=== PATIENT | female | born 1955 | race Two or more races ===

== ENCOUNTER → 2018-06-05 | Outpatient (CLI) | payer OTHER ==
--- NOTE | 2018-06-05 13:21 | DIREP ---
PROCEDURE:MRI JOINT LOWER EXTREMITY-LT W/O COMPARISON:None. INDICATIONS:M25.569 KNEE PAIN TECHNIQUE:A complete multi-planar MRI was performed. FINDINGS: PATELLOFEMORAL:Mild cartilage thinning and surface irregularity at the lateral patellar facet with subjacent reactive marrow edema. Mild medial trochlear facet cartilage surface irregularity. Small patellar and trochlear marginal osteophytes. MEDIAL COMPARTMENT MEDIAL MENISCUS:Tear of the anterior horn and adjacent body segments of the medial meniscus. Degenerative signal in the posterior root segment. HYALINE CARTILAGE:Full-thickness cartilage loss involves a large portion of the central aspect of the medial compartment articular surfaces. BONES:Small marginal osteophytes. Reactive subcortical marrow edema. MCL AND MEDIAL CAPSULE:Normal medial collateral ligament and medial capsule. LATERAL COMPARTMENT LATERAL MENISCUS:Normal. No visible tear or significant degeneration. HYALINE CARTILAGE:Normal. No visible defect. BONES:Normal. No marrow pathology, fracture, or significant arthropathy. LCL/POSTEROLAT. COMPLEX:Normal lateral collateral ligament, fascicles, lateral capsule and ligaments. ACL:Normal appearing ligament. Small geodes at the tibial attachment. PCL:Normal appearing ligament. MENISCOFEMORAL:Normal meniscofemoral ligaments. EFFUSION:Small volume joint effusion. OTHER:Negative. CONCLUSION: 1. Medial meniscal tear. 2. Severe degenerative arthropathy. Dictated by: Meek Youssef M.D. on 06/05/2018 at 01:16 PM
== END | disposition home or self-care (01) ==
LOC: MRI 10:53
PROVIDERS: ATTEND Family Medicine
DX: S83.242A Other tear of medial meniscus, current injury, left knee, initial encounter (principal); M12.862 Other specific arthropathies, not elsewhere classified, left knee; M25.462 Effusion, left knee; X58.XXXA Exposure to other specified factors, initial encounter; Y93.89 Activity, other specified; Y92.89 Other specified places as the place of occurrence of the external cause; Y99.8 Other external cause status
CPT/HCPCS: 73721

== ENCOUNTER → 2021-03-17 | Outpatient (CLI) | payer OTHER ==
--- NOTE | 2021-03-17 17:28 | DIREP ---
PROCEDURE:CT ABDOMEN W/ + W/O CONTRAST COMPARISON:None. INDICATIONS:ABD PAIN LUQ TECHNIQUE:Axial images were created through the abdomen with and without non-ionic intravenous contrast material. No oral contrast was administered. Sagittal and coronal reconstructions were performed from source images. FINDINGS: LUNG BASES:Right middle lobe soft tissue nodule measures 2.1 x 1.1 x 1.4 cm. Nodule in the medial right lower lobe image 16 measures 9 x 11 mm. LIVER:There are a couple simple cysts in the liver. BILIARY:Multiple gallstones. No gallbladder wall thickening or pericholecystic fluid. No biliary ductal dilatation. PANCREAS:Normal. No lesion, fluid collection, ductal dilatation, or atrophy. SPLEEN:Normal. No enlargement or focal lesion. ADRENALS:Normal. No mass or enlargement. URINARY TRACT:Normal. No focal lesions or hydronephrosis. AORTA/VASCULAR:Scattered calcified plaque. RETROPERITONEUM:Normal. No mass or adenopathy. BOWEL/MESENTERY:There is haziness in the central mesentery and mildly prominent lymph nodes consistent with missing mesenteric. This may be infectious or inflammatory. Normal appendix. No bowel obstruction. ABDOMINAL WALL:Normal. No mass or hernia. PELVIC ORGANS:The pelvis was not imaged. BONES:There are degenerative changes of the spine. OTHER:Negative. CONCLUSION: 1. Cholelithiasis. 2. Haziness and mildly prominent central mesenteric lymph nodes suggesting infectious or inflammatory etiologies versus lymphoma, (lymphoma felt less likely). Dictated by: Meek Youssef M.D. on 03/17/2021 at 05:14 PM
== END | disposition home or self-care (01) ==
LOC: RAD 10:08
PROVIDERS: ATTEND Family Medicine
DX: K80.20 Calculus of gallbladder without cholecystitis without obstruction (principal); K76.89 Other specified diseases of liver; M47.819 Spondylosis without myelopathy or radiculopathy, site unspecified
CPT/HCPCS: 36415; 74170; 82565; Q9965

== ENCOUNTER → 2021-04-27 | Outpatient (CLI) | payer OTHER ==
[~2021-04-27] MED LIST: LEXISCAN IV ONE
--- NOTE | 2021-04-28 01:31 | STRESS ---
DATE OF SERVICE: 04/27/2021 DICTATOR NAME: MARIA C VITALJOSE CARLOSSoco CARDIAC STRESS TEST INDICATION: Chest pain. FINDINGS: Baseline EKG shows normal sinus rhythm, normal variant with nonspecific ST-T wave changes. Stress EKG shows normal sinus rhythm, unchanged from baseline. At the end of recovery, EKG shows normal sinus rhythm, unchanged from baseline. Baseline blood pressure is 141/84 and remained the same during stress. At the end of recovery, the blood pressure was 136/79. Baseline heart rate was 65 beats per minute and flex to 85 beats per minute during stress. At the end of recovery, the heart rate was 90 beats per minute. Blood pressure and heart rate were appropriate for stress. There were no significant symptoms noted during stress. There were no arrhythmias noted during stress. EKG portion of stress test is negative for myocardial ischemia. Nuclear images were obtained with a rest dose of 11.2 mCi technetium-99 sestamibi, and a stress dose of 30 mCi technetium 99 sestamibi. Nuclear images reveal homogeneous tracer distribution across all wall segments in both rest and stress images, with no evidence of myocardial ischemia or infarction. Left ventricular ejection fraction is 63%. EDV is 52 mL, ESV is 19 mL. The left ventricle is normal in size. Gated motion images showed normal wall motion across all segments of the left ventricle. TID is 1.1. There is no evidence of diaphragmatic attenuation artifact. IMPRESSION: 1. Normal myocardial perfusion imaging with no evidence of myocardial ischemia or infarction. 2. Left ventricular ejection fraction of 63%. 3. This is a negative study. Hilda GRIDER D.O. DR: BALAJI/ALY TID: [id number] RECEIPT: [id number]
== END | disposition home or self-care (01) ==
LOC: RAD 10:32
PROVIDERS: ATTEND Internal Medicine Interventional Cardiology
DX: R00.2 Palpitations (principal)
CPT/HCPCS: 78452; 93017; A9500; J2785

== ENCOUNTER → 2022-03-21 | Outpatient (CLI) | payer OTHER ==
--- NOTE | 2022-03-21 13:04 | DIREP ---
PROCEDURE:CT ABDOMEN W/ + W/O CONTRAST COMPARISON:[facility], CT, CT ABDOMEN W-W/O, 03/17/2021, 10:54 AM. INDICATIONS:R10.12 ABD PAIN, LUQ TECHNIQUE:Axial images were created through the abdomen with and without non-ionic intravenous contrast material. Noncontrast, portal venous, and 5 minute delayed phase images were acquired. No oral contrast was administered. Sagittal and coronal reconstructions were performed from source images. FINDINGS: LUNG BASES:Stable right middle lobe and right lower lobe nodules measuring up to 2.0 cm in the right middle lobe (series [id number], image 59). Questionable faint calcifications involving the right middle lobe nodule. No consolidation or pleural effusion. Normal heart size. LIVER:Stable fluid density lesions in the left hepatic lobe in keeping with cysts. No new abnormality. BILIARY:Interval cholecystectomy. No fluid collection in the gallbladder fossa. There is no biliary ductal dilatation. PANCREAS:Mild peripancreatic/mesenteric stranding. Correlate with lipase. No focal lesion or ductal dilatation. No peripancreatic fluid collection. SPLEEN:Normal. No enlargement or focal lesion. ADRENALS:Normal. No mass or enlargement. URINARY TRACT:Normal. No focal lesions or hydronephrosis. No visible urinary tract calculi. AORTA/VASCULAR:Mild scattered calcified atherosclerosis without abdominal aortic aneurysm. RETROPERITONEUM:Normal. No mass or adenopathy. BOWEL/MESENTERY:The appendix is visualized and appears normal. There is no evidence of intestinal obstruction or free air in the visualized abdomen and pelvis. Trace free fluid in the pelvis may be physiologic. Stranding along the root of the mesentery with several prominent mesenteric lymph nodes. ABDOMINAL WALL:Postsurgical changes in the ventral abdominal wall. PELVIC ORGANS:The pelvis was not imaged. BONES:Degenerative changes in the spine with multilevel anterior bridging osteophytes. No acute or aggressive osseous abnormality. OTHER:Negative. CONCLUSION: 1. Interval cholecystectomy. No fluid collection or abnormality is seen in the gallbladder fossa. 2. Stranding at the root of the mesentery with several prominent mesenteric lymph nodes, grossly unchanged. This may represent sclerosing mesenteritis, though is also seen with other conditions including recent surgery, systemic inflammatory conditions, or autoimmune conditions. Lymphoma considered less likely given interval stability. Clinically correlate. 3. Stable pulmonary nodules in the right middle lobe and right lower lobe. Consider follow-up CT in 3 months, PET-CT, or percutaneous biopsy per Fleischner criteria. 4. Other findings as above. Dictated by: Balaji Max M.D. On 03/21/2022 at 12:51 PM
== END | disposition home or self-care (01) ==
LOC: RAD 10:31
PROVIDERS: ATTEND Family Medicine
DX: R10.12 Left upper quadrant pain (principal); R91.8 Other nonspecific abnormal finding of lung field; M25.78 Osteophyte, vertebrae; Z90.49 Acquired absence of other specified parts of digestive tract
CPT/HCPCS: 74170; 36415; 82565; Q9965

== ENCOUNTER → 2022-07-04 | Outpatient (CLI) | payer OTHER ==
--- NOTE | 2022-07-04 13:06 | DIREP ---
This report includes an Addendum and supersedes previous reports for this exam. PROCEDURE:CT CHEST W/O COMPARISON:[facility], CT, CT ABDOMEN W-W/O, 03/17/2021, 10:54 AM. INDICATIONS:R91.1 PULMONARY NODULE TECHNIQUE:Helical sections through the chest were performed from the lung apices through the diaphragms without IV contrast. Sagittal and coronal reconstructions are obtained from source images. FINDINGS: LUNGS:11 mm nodule within the right lung base, enlarged from prior exam. Recommend biopsy. Additional right middle lobe nodule measuring approximate 12 mm in size., stable for over 2 years. Left upper lobe nodule on series 5, image 32 measuring 3 mm. PLEURA:Normal. No mass or effusion. CARDIAC:Normal. No enlargement, pericardial thickening, or significant calcification. MEDIASTINUM:Normal. No mass or adenopathy. CONCHITA:Normal. No mass or adenopathy. AORTA:Normal. No aneurysm. CHEST WALL:Normal. No mass or axillary adenopathy. LIMITED ABDOMEN:Hepatic cysts, stable for over 2 years. Limited images of the upper abdomen are unremarkable. BONES:Normal. No bony lesion or fracture. OTHER:Negative. CONCLUSION: 1. Suspicious nodule in the left lung base. Slowly enlarging over time. Recommend biopsy 2. Incidentally noted 3 mm nodule in the left upper lobe. 3. Right middle lobe nodule with stability for over 2 years, compatible with benign process. Dictated by: Armando Estevez DO on 07/04/2022 at 12:56 PM NDUM: There is a [id number] discrepancy involving conclusion 1. New conclusion below. CONCLUSION: 1. Suspicious nodule in the RIGHT lung base. Slowly enlarging over time. Recommend biopsy 2. Incidentally noted 3 mm nodule in the left upper lobe. 3. Right middle lobe nodule with stability for over 2 years, compatible with benign process. Dictated by: Armando Estevez DO on 07/07/2022 at 01:49 PM
== END | disposition home or self-care (01) ==
LOC: RAD 09:51
PROVIDERS: ATTEND Family Medicine
DX: R91.1 Solitary pulmonary nodule (principal)
CPT/HCPCS: 36415; 71250; 82565

== ENCOUNTER → 2023-05-02 | Outpatient (CLI) | payer OTHER | END | disposition home or self-care (01) | LOC: RAD 09:59 | PROVIDERS: ATTEND Internal Medicine | DX: R91.8 Other nonspecific abnormal finding of lung field (principal); I25.10 Atherosclerotic heart disease of native coronary artery without angina pectoris; I70.0 Atherosclerosis of aorta; K76.89 Other specified diseases of liver; M47.814 Spondylosis without myelopathy or radiculopathy, thoracic region; Z90.49 Acquired absence of other specified parts of digestive tract | CPT/HCPCS: 71250 ==

== ENCOUNTER → 2023-05-08 | Outpatient (CLI) | payer OTHER | END | disposition home or self-care (01) | LOC: RAD 09:33 | PROVIDERS: ATTEND Specialist | DX: I48.0 Paroxysmal atrial fibrillation (principal); I10 Essential (primary) hypertension; G47.33 Obstructive sleep apnea (adult) (pediatric); R06.02 Shortness of breath; E66.01 Morbid (severe) obesity due to excess calories | CPT/HCPCS: 78452; 93306; A9500 ==

== ENCOUNTER 2023-05-24 07:33 | Day surgery (SDC) | payer OTHER ==
[2023-05-22 14:19] VITALS: BP 132/63; PULSE 67; RESP 18; TEMP 97.9; O2SAT 98
[2023-05-22 14:50] LABS: PROTHROMBIN PROTIME 10.7 SEC (9.7-11.6)
[~2023-05-24] VITALS: Ht 172.7 cm; Wt 133.8 kg
[2023-05-24] VITALS (12 sets, daily range): BP systolic 113–146; BP diastolic 57–74; PULSE 57–68; RESP 16–18; TEMP 97.5–98.5; O2SAT 96–98
[~2023-05-24 07:33] MED LIST changes: +ASPI-667 PO; +FLUO40CA9 PO; +HEPARIN ONE; +IRBE150T17 PO; -LEXISCAN IV ONE; +METO-238 PO; +MULT-129 PO; +NS 1000ML 1,000 ML ONE; +PHENERGAN ONE; +SUBLIMAZE 100MCG/2ML ONE; +VALIUM ONE; +VERSED ONE
[2023-05-24] MEDS: NS 1000ML 1,000 ML IV SCH (07:55)
[2023-05-24] MEDS: PHENERGAN PO ONE (07:59)
[2023-05-24] MEDS: VALIUM PO ONE (07:59)
== END 2023-05-24 12:40 | disposition home or self-care (01) ==
LOC: SDC 07:33
PROVIDERS: ATTEND Specialist
DX: R94.39 Abnormal result of other cardiovascular function study (principal); I48.0 Paroxysmal atrial fibrillation; I10 Essential (primary) hypertension; E66.01 Morbid (severe) obesity due to excess calories; F32.A Depression, unspecified; I87.2 Venous insufficiency (chronic) (peripheral); E55.9 Vitamin D deficiency, unspecified; E11.9 Type 2 diabetes mellitus without complications; E78.00 Pure hypercholesterolemia, unspecified; G47.33 Obstructive sleep apnea (adult) (pediatric); Z79.899 Other long term (current) drug therapy; Z98.890 Other specified postprocedural states; Z90.49 Acquired absence of other specified parts of digestive tract; Z98.891 History of uterine scar from previous surgery; Z82.49 Family history of ischemic heart disease and other diseases of the circulatory system; Z72.89 Other problems related to lifestyle; Z68.41 Body mass index [BMI] 40.0-44.9, adult; Z79.82 Long term (current) use of aspirin; Z88.8 Allergy status to other drugs, medicaments and biological substances; Z88.2 Allergy status to sulfonamides
CPT/HCPCS: 71046; 36415; 85610; 85730; 93458; 99152; J7030 ×2; J1644 ×2; C1894 ×4; A6258; J2250; J3010; C1760; Q9967

== ENCOUNTER → 2023-10-22 | Outpatient (CLI) | payer OTHER ==
[~2023-10-22] MED LIST changes: -HEPARIN ONE; -NS 1000ML 1,000 ML ONE; -PHENERGAN ONE; -SUBLIMAZE 100MCG/2ML ONE; -VALIUM ONE; -VERSED ONE
[2023-10-22 15:38] LABS: BASOPHIL % 0.2 % (0.0-0.2); EOSINOPHIL # 0.1 10^3/uL (0.0-0.2); EOSINOPHIL % 1.6 % (0.0-5.0); HEMATOCRIT(ML) 46.7 % (36.0-46.0); HEMOGLOBIN 14.9 g/dL (12.0-15.0); LYMPHOCYTES # 1.27 10^3/uL1 (1.0-4.8); LYMPHOCYTES % 14.1 % (24.0-44.0); MEAN CORP HGB 30.3 pg (26-34); MEAN CORP HGB CONCENTRATION 31.9 g/dL (33-36.5); MEAN CORP VOLUME 95.1 fL (78-100); MONOCYTES # 0.7 10^3/uL (0.3-0.8); MONOCYTES % 7.4 % (5.0-12.0); NEUTROPHIL # 6.9 10^3/uL (1.8-7.7); NEUTROPHILS % 76.4 % (41.0-85.0); PLATELET COUNT 215 10^3/uL (150-400); RED BLOOD CELL 4.91 10^6/uL (4.00-5.20); RED CELL DISTRIBUTION WIDTH 13.1 % (11.5-14.5)
[2023-10-22 15:49] LABS: +ADD MANUAL DIFF(NO CHRG) NO
[2023-10-22 15:58] LABS: ANION GAP 12.6; C-REACTIVE PROTEIN 0.27 mg/dL (0.00-5.00); CARBON DIOXIDE 26.4 mmol/L (20.0-32); CREATININE SERUM 1.21 mg/dL (0.59-1.40)
[2023-10-22 15:59] LABS: ALBUMIN(ML) 3.5 g/dL (3.4-5.0); ALBUMIN/GLOBULIN RATIO 1.093; BUN/CREATININE RATIO 15.7 (10.0-20.0); CALCIUM 9.2 mg/dL (8.4-10.5); EST GFR, NON-AA 44.5 (>/=60); LDL/HDL RATIO 0.8
== END | disposition home or self-care (01) ==
LOC: LAB 15:18
PROVIDERS: ATTEND Specialist
DX: I10 Essential (primary) hypertension (principal); E11.9 Type 2 diabetes mellitus without complications; E78.5 Hyperlipidemia, unspecified
CPT/HCPCS: 36415; 80053; 80061; 84439; 84443; 85025; 86140

== ENCOUNTER → 2024-06-30 | Outpatient (CLI) | payer OTHER ==
[~2024-06-30] MED LIST changes: +XOPENEX ONE
== END | disposition home or self-care (01) ==
LOC: RT 09:26
PROVIDERS: ATTEND Internal Medicine
DX: J44.9 Chronic obstructive pulmonary disease, unspecified (principal)
CPT/HCPCS: 94060; J3490

== ENCOUNTER → 2024-09-25 | Outpatient (CLI) | payer OTHER ==
[~2024-09-25] MED LIST changes: -XOPENEX ONE
[2024-09-25 12:45] LABS: BASOPHIL % 0.5 % (0.1-1.2); EOSINOPHIL # 0.2 10^3/uL (0.0-0.2); EOSINOPHIL % 2.5 % (0.0-5.0); HEMOGLOBIN 15.7 g/dL (12.0-15.0); LYMPHOCYTES # 0.52 10^3/uL1 (1.0-4.8); MEAN CORP HGB 29.8 pg (26-34); MONOCYTES # 0.6 10^3/uL (0.3-0.8); MONOCYTES % 7.3 % (5.0-12.0); NEUTROPHIL # 7.2 10^3/uL (1.8-7.7); PLATELET COUNT 247 10^3/uL (150-400); RED BLOOD CELL 5.27 10^6/uL (4.00-5.20); WHITE BLOOD CELL 8.7 10^3/uL (4.5-11.0)
[2024-09-25 12:47] LABS: +ADD MANUAL DIFF(NO CHRG) NO
[2024-09-25 13:09] LABS: ALBUMIN(ML) 3.5 g/dL (3.4-5.0); ALBUMIN/GLOBULIN RATIO 1.06; ANION GAP 12.9; BUN/CREATININE RATIO 19.46 (10.0-20.0); C-REACTIVE PROTEIN 2.02 mg/dL (0.00-5.00); CALCIUM 9.1 mg/dL (8.4-10.5); CARBON DIOXIDE 29.7 mmol/L (20.0-32); CREATININE SERUM 1.13 mg/dL (0.59-1.40); LDL/HDL RATIO 1.3; POTASSIUM 4.6 mmol/L (3.6-5.2)
== END | disposition home or self-care (01) ==
LOC: NPLAB 12:09
PROVIDERS: ATTEND Specialist
DX: I11.0 Hypertensive heart disease with heart failure (principal); I50.32 Chronic diastolic (congestive) heart failure; I48.0 Paroxysmal atrial fibrillation; E11.9 Type 2 diabetes mellitus without complications; E78.5 Hyperlipidemia, unspecified; R00.2 Palpitations; E66.9 Obesity, unspecified
CPT/HCPCS: 36415; 80053; 80061; 83036; 84439; 84443; 85025; 86140

== ENCOUNTER → 2024-09-25 | Outpatient (CLI) | payer OTHER | END | disposition home or self-care (01) | LOC: RAD 09:54 | PROVIDERS: ATTEND Specialist | DX: I34.0 Nonrheumatic mitral (valve) insufficiency (principal); I11.0 Hypertensive heart disease with heart failure; I50.32 Chronic diastolic (congestive) heart failure; I48.0 Paroxysmal atrial fibrillation; R00.2 Palpitations; E66.9 Obesity, unspecified | CPT/HCPCS: 93306 ==

== ENCOUNTER 2024-10-10 08:35 | Day surgery (SDC) | payer OTHER ==
[2024-10-07 11:26] VITALS: BP 136/78; PULSE 70; RESP 18; TEMP 97.7; O2SAT 93
[2024-10-07 12:31] LABS: INR 1.1; PROTHROMBIN PROTIME 11.0 SEC (9.3-11.6)
[~2024-10-10] VITALS: Ht 170.2 cm; Wt 129.3 kg
[~2024-10-10 08:35] MED LIST changes: +AMIO200T60 PO; +APIX5TAB PO; +NS 1000ML 1,000 ML ONE; +ROSU40TA PO; +SPIR25TA5 PO
[2024-10-10 08:50] VITALS: BP 176/87; PULSE 64; RESP 18; TEMP 97.7; O2SAT 95
[2024-10-10] MEDS: NS 1000ML 1,000 ML IV ONE (08:55)
[2024-10-10] MEDS ORDERED: SUBLIMAZE 100MCG/2ML ONE ×2 (09:12→09:15)
[2024-10-10] MEDS ORDERED: VERSED ONE ×2 (09:12→09:15)
[2024-10-10] MEDS ORDERED: XYLOCAINE ONE (09:31)
[2024-10-10 09:45] VITALS: BP 148/85; PULSE 64; RESP 18; TEMP 97.4; O2SAT 94
== END 2024-10-10 10:20 | disposition home or self-care (01) ==
LOC: SDC 08:35
PROVIDERS: ATTEND Specialist
DX: I48.0 Paroxysmal atrial fibrillation (principal); E66.9 Obesity, unspecified; F32.A Depression, unspecified; I11.9 Hypertensive heart disease without heart failure; I87.2 Venous insufficiency (chronic) (peripheral); Z79.01 Long term (current) use of anticoagulants; Z90.49 Acquired absence of other specified parts of digestive tract; Z79.899 Other long term (current) drug therapy
CPT/HCPCS: 36415; 85610; 93005; 33285; J7030; A6258; A4649; J2250 ×2; J3010 ×2; C1764; 99152